=== PATIENT | male | born 1995 | race Caucasian/White ===

== ENCOUNTER 2018-05-17 22:29 | Emergency (ER) | payer SELFPAY ==
[~2018-05-17] VITALS: Ht 182.9 cm; Wt 102.1 kg
[2018-05-17 22:31] VITALS: BP 122/77
--- NOTE | 2018-05-17 22:31 | NUR ---
TO BED # 2 AMBULATORY , REPORT GIVEN TO GISSELL SIMEON
--- NOTE | 2018-05-17 22:31 | NUR ---
PT PRESENTS TO ED WITH SOB AND DYSPNEA X2 DAYS. PT STATES NO ALLERGIES. BILAT BASES EXPIRATORY WHEEZING. STATES COUGHING UP YELLOW TO GREEN PHLEGM. OX SAT 97% AT RA. VSS. AFEBRILE AT THIS TIME. PT STATES HIS TREATING HIM AT HOME WITH VICS VAPOR RUB. POSITIONED IN BED FOR COMFORT. AT BEDSIDE. DR MIKE AT BEDSIDE EVALUATING. CONTINUE TO MONITOR.
[2018-05-17] MEDS ORDERED: predniSONE 20 MG TAB PO ONE (23:20)
[2018-05-17] MEDS ORDERED: ALBUTEROL 0.083% 2.5 MG/3 ML NEBU INH ONE (23:20)
[2018-05-17] MEDS ORDERED: AZITHROMYCIN 250 MG TAB PO ONE (23:20)
[2018-05-17] MEDS ORDERED: IPRATROPIUM 0.02% 0.5 MG/2.5 ML NEBU INH ONE (23:20)
--- NOTE | 2018-05-17 23:25 | NUR ---
RESPIRATORY AT BEDSIDE
--- NOTE | 2018-05-18 00:20 | NUR ---
AWITING DISCHARGE PAPERWORK FROM DR MIKE.
[2018-05-18 00:49] VITALS: BP 121/68
--- NOTE | 2018-05-18 00:49 | NUR ---
Patient discharged with v/s stable. Written and verbal after care instructions given and explained. Patient alert, oriented and verbalized understanding of instructions. Ambulatory with steady gait. All questions addressed prior to discharge. ID band removed. Patient advised to follow up with PMD. Rx of Prednisone, Albuterol INH, and Zithromax given. Patient educated on indication of medication including possible reaction and side effects. Opportunity to ask questions provided and answered.
== END 2018-05-18 00:49 | disposition home or self-care (01) ==
LOC: MED 22:29
DX: J40 Bronchitis, not specified as acute or chronic (principal); F17.210 Nicotine dependence, cigarettes, uncomplicated
CPT/HCPCS: 71045; 94640; 99283; J7512; J7613; J7644; Q0092

== ENCOUNTER 2018-10-16 18:36 | Emergency (ER) | payer MEDICAID, OTHER ==
[~2018-10-16] VITALS: Ht 182.9 cm; Wt 104.8 kg
[2018-10-16 19:02] VITALS: BP 147/77
--- NOTE | 2018-10-16 19:06 | NUR ---
VSS; PT AMBULATED TO LOBBY
--- NOTE | 2018-10-16 20:51 | NUR ---
PT AMBULATED TO BED 10
--- NOTE | 2018-10-16 20:56 | NUR ---
PT TO ED WITH C/O ABSCESS TO R CHEEK X 1 YR. PT DENIES DRAINAGE. PER PT "ANNABEL BEEN TRYING TO POP IT LIKE A ZIT BUT NOTHING COMES OUT" PT DENIES FEVER. NO REDNESS NOTED. NO S/S OF INFECTION NOTED. PT PLACED INTO BED, PENDING MD MILES.
[2018-10-16] MEDS ORDERED: LIDOCAINE 1% 500 MG/50 ML VIAL INJ SCH (22:20)
[2018-10-16] MEDS ORDERED: LIDOCAINE 1% 500 MG/50 ML VIAL ONE (22:34)
--- NOTE | 2018-10-16 22:41 | NUR ---
Dr. Jin evaluating patient at bedside.
[2018-10-16 22:53] VITALS: BP 140/70
== END 2018-10-16 22:53 | disposition home or self-care (01) ==
LOC: MED 18:36
DX: L72.3 Sebaceous cyst (principal)
CPT/HCPCS: 10060; 99283; J2001

== ENCOUNTER 2019-03-24 16:51 | Emergency (ER) | payer MEDICAID, OTHER ==
[~2019-03-24] VITALS: Ht 182.9 cm; Wt 106.3 kg
[2019-03-24 17:13] VITALS: BP 153/72
--- NOTE | 2019-03-24 17:22 | NUR ---
PATIENT AMBULATED TO BED 2.
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
[2019-03-24] MEDS ORDERED: ACETAMINOPHEN 325 MG TAB PO ONE (18:30)
[2019-03-24 18:44] VITALS: BP 128/68
== END 2019-03-24 18:45 | disposition home or self-care (01) ==
LOC: MED 16:51
DX: S06.0X0A Concussion without loss of consciousness, initial encounter (principal); H93.8X1 Other specified disorders of right ear; J45.909 Unspecified asthma, uncomplicated; W01.0XXA Fall on same level from slipping, tripping and stumbling without subsequent striking against object, initial encounter; Y93.E1 Activity, personal bathing and showering; Y92.091 Bathroom in other non-institutional residence as the place of occurrence of the external cause; Y99.8 Other external cause status
CPT/HCPCS: 99283